=== PATIENT | female | born 1995 | race African-American/Black ===

== ENCOUNTER 2017-04-23 11:54 | Emergency (ER) | payer OTHER ==
[~2017-04-23] VITALS: Ht 157.5 cm; Wt 49.9 kg
[~2017-04-23 11:54] MED LIST: ACYCLOVIR 400400 MG PO; CITRATE OF MAG296 ML PO; COLACE100 MG PO; IBUPROFEN 200200 M1 PO; NOHOMEMEDICATIONS; OXYCODONE HCL5 MG PO; ZOFRAN ODT4 MG PO
[2017-04-23 12:44] LABS: URINE BILIRUBIN NEGATIVE (Negative); URINE BLOOD NEGATIVE (Negative); URINE COLOR YELLOW; URINE GLUCOSE-RANDOM* NEGATIVE (Negative); URINE KETONES NEGATIVE (Negative); URINE NITRITE NEGATIVE (Negative); URINE PROTEIN (DIPSTICK) NEGATIVE (Negative)
[2017-04-23 14:23] VITALS: BP 111/72
[2017-04-24 23:13] LABS: CHLAMYDIA TRACHOMATIS-PCR Negative (Negative); NEISSERIA GONORRHEA-PCR Negative (Negative)
== END 2017-04-23 14:23 | disposition home or self-care (01) ==
LOC: ER 11:54
PROVIDERS: Nurse Practitioner
DX: N76.0 Acute vaginitis (principal); B96.89 Other specified bacterial agents as the cause of diseases classified elsewhere